=== PATIENT | male | born 1970 | race African-American/Black ===

== ENCOUNTER 2023-02-15 10:39 | Emergency (ER) | payer OTHER, SELFPAY ==
[2023-02-15 10:51] VITALS: BP 132/88; PULSE 62; RESP 14; TEMP 36.1; O2SAT 100
--- NOTE | 2023-02-15 11:00 | ED.EXTPRO ---
HPI - Extremity Problem General Chief complaint: Extremity Problem,Nontraumatic Stated complaint: Left Arm Tingling Time Seen by Provider: 02/15/23 11:00 Source: patient Mode of arrival: ambulatory Limitations: no limitations History of Present Illness HPI Narrative: 52-year-old male with history of high blood pressure presents with complaint of left upper arm numbness and tingling intermittently for the past week. Patient also reports intermittent left-sided chest pain. Denies pain to neck and shoulder. Reports that he notices numbness and tingling to left arm when driving. No nausea vomiting For diaphoresis. Not feeling lightheaded. Today has been experiencing left arm numbness and tingling but no chest pain. Patient concerned for his heart . All systems reviewed and negative except as noted above. Related Data Home Medications Medication Instructions Recorded Confirmed amlodipine 10 mg tablet mg 02/15/23 lisinopril 40 mg tablet mg 02/15/23 Allergies Allergy/AdvReac Type Severity Reaction Status Date / Time No Known Allergies Allergy Verified 02/15/23 11:48 Review of Systems Review of Systems: CONSTITUTIONAL: Denies fever, chills, or sweats. EYES: Denies visual changes, redness, or discharge. ENT: Denies rhinorrhea, congestion, sore throat, or otalgia. CARDIOVASCULAR: Reports intermittent chest pain. Denies palpitations, or edema. RESPIRATORY: Denies cough or dyspnea. GASTROINTESTINAL: Denies abdominal pain, nausea, vomiting, or diarrhea. GENITOURINARY: Denies dysuria or hematuria. SKIN: Denies rash or itching. MUSCULOSKELETAL: Denies back pain, joint pain, or myalgia. reports left arm numbness and tingling. NEUROLOGIC: Denies headache, numbness, or weakness. PSYCHIATRIC: Denies anxiety or depression. All other systems reviewed are negative, except as documented in HPI. PMFSH Comments At time of signature, agree with nursing past medical, surgical, social and family history. There is no relevant family history pertinent to the presenting complaint. Exam Narrative: GENERAL: This is a well-nourished, well-developed patient, in no apparent distress. HEAD: normocephalic, atraumatic. EYES: PERRL. Sclera clear/white. Vision is grossly intact. EARS: External ears normal NOSE: External nose normal NECK: Neck supple, non-tender without lymphadenopathy, masses or thyromegaly. No midline or muscular tenderness to neck. CARDIOVASCULAR: Regular rate and rhythm without murmurs, gallops, or rubs. RESPIRATORY: Clear to auscultation. Breath sounds equal bilaterally. No wheezes, rales, or rhonchi. SKIN: warm, Dry, intact with no suspicious lesions or rash, good texture and turgor. NEURO: awake, alert, and oriented to person, place and time. There were no obvious focal neurologic abnormalities. EXTREMITIES: No joint tenderness, effusion, or edema noted. Full range of motion to left shoulder. Unable to reproduce numbness and tingling with active/ passive range of motion to left upper extremity. BACK: Nontender without deformity. Course Course Level of Care: Express Care Visit Vital Signs Vital signs: Vital Signs Temperature 36.1 C L 02/15/23 10:51 Pulse Rate 62 02/15/23 10:51 Respiratory Rate 14 02/15/23 10:51 Blood Pressure 132/88 02/15/23 10:51 Pulse Oximetry 100 02/15/23 10:51 Oxygen Delivery Room Air 02/15/23 10:51 Temperature 36.1 C L 02/15/23 10:51 Pulse Rate 62 02/15/23 10:51 Respiratory Rate 14 02/15/23 10:51 Blood Pressure 132/88 02/15/23 10:51 Pulse Oximetry 100 02/15/23 10:51 Oxygen Delivery Room Air 02/15/23 10:51 reviewed Transfer Transfered to: [place] Transportation: Other (private car) Transfer rationale: nonspecific EKG changes, intermittent L arm numbness and L CP Accepting physician: Dr. Newberry MDM - Extremity (Nontraumatic) MDM Narrative Medical decision making narrative: Discuss results of EKG with duane
--- NOTE | 2023-02-15 11:07 | ECG_ITS ---
Measurements Intervals [employer] Rate: 66 P: 40 IN: 157 QRS: -6 QRSD: 90 T: 9 QT: 365 QTc: 383 Interpretive Statements SINUS RHYTHM BORDERLINE T WAVE ABNORMALITY- INFERIOR LEADS BASELINE ARTIFACT- III, AVR, AVL, AVF BORDERLINE ECG COMPARED TO ECG 02/15/2023 11:16:50 SINUS RHYTHM NOW PRESENT Electronically Signed On 02-15-2023 21:51:59 CDT by Tres Peterson D.O.
== END 2023-02-15 11:26 | disposition short-term general hospital (02) ==
PROVIDERS: Emergency Provider Nurse Practitioner Family; PCP Family Medicine
DX: R20.0 Anesthesia of skin (principal); R07.9 Chest pain, unspecified; I10 Essential (primary) hypertension
CPT/HCPCS: 93005; 99203; G0463

== ENCOUNTER 2023-02-15 11:47 | Emergency (ER) | payer OTHER, SELFPAY ==
[2023-02-15] VITALS (7 sets, daily range): BP systolic 121–145; BP diastolic 85–101; PULSE 67–78; RESP 15–18; TEMP 36.6; O2SAT 97–100
--- NOTE | ~2023-02-15 | XR_ITS ---
EXAMINATION: XR chest 1V portable Exam Date/Time: 02/15/2023 16:45 CDT HISTORY: chest pain Comparison: None. RESULT: Lines, tubes, and devices: None. Lungs and pleura: Clear. Cardiomediastinal silhouette: Unremarkable. Other: No acute osseous or upper abdominal finding. IMPRESSION: No acute cardiopulmonary process. Reviewed, dictated and finalized at location K.
--- NOTE | 2023-02-15 12:26 | ECG_ITS ---
Measurements Intervals [place] Rate: 56 P: 53 [place]: 157 QRS: 5 QRSD: 87 T: 0 QT: 387 QTc: 375 Interpretive Statements SINUS BRADYCARDIA VENTRICULAR PREMATURE COMPLEX NONSPECIFIC ST ELEVATION IN ANTEROLAT/HIGH LAT LEADS BORDERLINE T WAVE ABNORMALITY- INFERIOR LEADS BORDERLINE ECG NO PREVIOUS ECG AVAILABLE FOR COMPARISON Electronically Signed On 02-15-2023 21:50:22 CDT by Tres Peterson D.O.
[2023-02-15 12:49] LABS: Basophils Percent Auto 0.7 % (0.2-1.2); Eosinophils Absolute Auto 0.2 K/mm3 (0-0.3); Eosinophils Percent Auto 5.9 % (0-4.4); Hematocrit 44.9 % (42.0-52.0); Immature Granulocyte Absolute 0.01 K/mm3 (0.00-0.031); Immature Granulocyte Percent A 0.3 % (0-0.5); Lymphocytes Absolute Auto 0.83 K/mm3 (0.9-3.2); Lymphocytes Percent Auto 28.6 % (18.3-44.2); Mean Corpuscular HGB Conc 33.4 g/dl (32-36); Mean Corpuscular Hemoglobin 25.2 pg (26-34); Mean Corpuscular Volume 75.5 fl (80-100); Mean Platelet Volume 9.6 fl (7.4-10.4); Monocytes Absolute Auto 0.3 K/mm3 (0.1-0.6); Monocytes Percent Auto 9.7 % (2.6-8.5); Neutrophils Absolute Auto 1.6 K/mm3 (1.3-6.7); Neutrophils Percent Auto 54.8 % (45.5-73.1); Platelet Count Result 210 k/mm3 (150-375); Red Blood Count 5.95 M/mm3 (4.6-6.20); Red Cell Distribution Width 13.9 % (11.5-14.5); White Blood Count 2.9 K/mm3 (4.5-10.0)
--- NOTE | 2023-02-15 12:51 | PC.NURSE ---
pt in ultrasound at this time.
[2023-02-15 13:01] LABS: Prothrombin Time 13.8 Seconds (11.1-14.7)
[2023-02-15 13:02] LABS: Partial Thromboplastin Time 29.4 SECONDS (22.3-36.8)
--- NOTE | 2023-02-15 13:03 | ED.GENADULT ---
HPI - General Adult General Chief complaint: Unspecified Stated complaint: sent from with c/o left arm numbness x2-3 wks Time Seen by Provider: 02/15/23 12:25 History of Present Illness HPI narrative: 52-year-old male present to the emergency department for evaluation of some intermittent left-sided chest pressure and left arm pain. Patient has no prior history of coronary disease but does have a history of high blood pressure. Patient states that he has been having these symptoms intermittently over the last few weeks. Patient denies any current left arm pain or current chest pain. Patient did follow-up with the urgent care today concern for coronary disease and was referred to the emergency department for further work-up. Patient states he does do a lot of heavy lifting for work but has no chest pain or symptoms with heavy exertion. Related Data Home Medications Medication Instructions Recorded Confirmed amlodipine 10 mg tablet mg 02/15/23 lisinopril 40 mg tablet mg 02/15/23 Allergies Allergy/AdvReac Type Severity Reaction Status Date / Time No Known Allergies Allergy Verified 02/15/23 11:48 Review of Systems Review of Systems: All systems reviewed & are unremarkable except as noted in HPI and below Exam Narrative: APPEARANCE: Well appearing, no pain, no distress, well-nourished. HEAD: normocephalic, atraumatic. EYES: PERRLA/EOMI, conjunctivae clear. NOSE: Normal no drainage EARS:TMS clear with good light reflex. THROAT: Pharynx clear, no exudate. NECK: Supple. No adenopathy, no masses. RESPIRATORY: Airway patent, respirations nonlabored. Clear to auscultation bilaterally, no rales, rhonchi, wheezing. CARDIOVASCULAR: Regular rate and rhythm without murmurs rubs or gallops. ABDOMINAL: Soft, nontender, nondistended, normal bowel sounds MUSCULOSKELETAL: Moves all extremities. Strength/ROM intact, No edema, No calf tenderness. NEURO: Alert. Cranial nerves II through XII intact. Good gait. Good coordination SKIN: Warm, dry. Normal Color PSYCHIATRIC: Normal affect/mood. Course Course Emergency Course: 52-year-old male presented emergency department for evaluation of intermittent chest pressure and left arm numbness. Patient was symptom-free in the ED. Patient was afebrile with no leukocytosis and a stable hemoglobin. Patient had a normal CMP, normal kidney function and negative serial troponins. EKG showed normal sinus rhythm. Patient was updated results of his work-up and was encouraged of close follow-up with primary care physician for additional outpatient cardiac testing. All question concerns were addressed and patient was comfortable to plan with discharge and close follow-up. Vital Signs Vital signs: Vital Signs Temperature 97.8 F 02/15/23 11:52 Pulse Rate 78 02/15/23 11:52 Respiratory Rate 18 02/15/23 11:52 Blood Pressure 145/90 H 02/15/23 11:52 Pulse Oximetry 99 02/15/23 11:52 Oxygen Delivery Room Air 02/15/23 11:52 Temperature 97.8 F 02/15/23 11:52 Pulse Rate 71 02/15/23 15:41 Respiratory Rate 18 02/15/23 15:41 Blood Pressure 121/93 H 02/15/23 15:41 Pulse Oximetry 99 02/15/23 15:41 Oxygen Delivery Room Air 02/15/23 11:52 Medical Decision Making Differential Diagnosis Differential Diagnosis: Muscular strain, arm pain, peripheral neuropathy, ACS Vital Signs Vital Signs: Vital Signs Temperature 97.8 F 02/15/23 11:52 Pulse Rate 78 02/15/23 11:52 Respiratory Rate 18 02/15/23 11:52 Blood Pressure 145/90 H 02/15/23 11:52 Pulse Oximetry 99 02/15/23 11:52 Oxygen Delivery Room Air 02/15/23 11:52 Temperature 97.8 F 02/15/23 11:52 Pulse Rate 71 02/15/23 15:41 Respiratory Rate 18 02/15/23 15:41 Blood Pressure 121/93 H 02/15/23 15:41 Pulse Oximetry 99 02/15/23 15:41 Oxygen Delivery Room Air 02/15/23 11:52 Lab Data Lab results reviewed: Yes I reviewed the patient's lab results. 02/15/23 12:39
[2023-02-15 13:14] LABS: Alanine Aminotransferase 27 U/L (6-50); Albumin Level 4.5 g/dL (3.5-5.1); Alkaline Phosphatase 45 U/L (38-126); Anion Gap 9 mmol/L (8-16); Aspartate Amino Transferase 42 U/L (17-59); Blood Urea Nitrogen 15 mg/dL (9-20); Calcium 9.2 mg/dL (8.4-10.2); Carbon Dioxide 26 mmol/L (22-30); Chloride 103 mmol/L (98-107); Estimated CRCL calculation 69 ml/min; Estimated Glomerular Filt Rate 60; Glucose 105 mg/dL (65-110); Potassium 4.4 mmol/L (3.4-5.0); Sodium 138 mmol/L (137-145)
[2023-02-15 13:25] LABS: Troponin I < 0.012 ng/mL (0.000-0.034)
[2023-02-15 15:46] LABS: Troponin I < 0.012 ng/mL (0.000-0.034)
--- NOTE | 2023-02-15 16:11 | PC.NURSE ---
this RN assumed care of patient. this RN took report from Bren BRIGHT
== END 2023-02-15 17:00 | disposition home or self-care (01) ==
PROVIDERS: Emergency Provider Emergency Medicine; PCP Family Medicine
DX: R20.0 Anesthesia of skin (principal); R07.9 Chest pain, unspecified
CPT/HCPCS: 36415; 71045; 80053; 84484; 85025; 85610; 85730; 93005; 99284